=== PATIENT | female | born 1980 | race Caucasian/White ===

== ENCOUNTER 2022-10-23 06:07 | Day surgery (SDC) | payer SELFPAY ==
[2022-10-19 12:39] VITALS: BMI 25.3
[2022-10-23] MEDS ORDERED: DEXAMETHASONE SOD PHOSPHATE 4 MG/1 ML VIAL ONE (07:12)
[2022-10-23] MEDS ORDERED: KETOROLAC TROMETHAMINE 30 MG/1 ML VIAL ONE (07:12)
[2022-10-23] MEDS ORDERED: SEVOFLURANE 250 ML BTL ONE (07:12)
[2022-10-23] MEDS ORDERED: ONDANSETRON 4 MG/2 ML VIAL ONE ×2 (07:12→11:49)
[2022-10-23] MEDS ORDERED: MIDAZOLAM HCL 2 MG/2 ML SINGLE DOSE VIAL ONE ×2 (07:13→08:07)
[2022-10-23] MEDS ORDERED: SUCCINYLCHOLINE CHLORIDE 200 MG/10 ML SYRINGE ONE (07:13)
[2022-10-23] MEDS ORDERED: ROCURONIUM BROMIDE 50 MG/5 ML SYRINGE ONE ×2 (07:13→08:55)
[2022-10-23] MEDS ORDERED: PROPOFOL 20 ML ONE ×4 (07:13→11:39)
[2022-10-23] MEDS ORDERED: EPINEPHrine/PF 1 MG/1 ML (1:1,000) AMPULE ONE ×3 (07:24→10:30)
[2022-10-23] MEDS ORDERED: BUPIVACAINE HCL/PF 2.5 MG/ML - 30 ML VIAL IJ ONE (07:24)
[2022-10-23] MEDS ORDERED: LIDOCAINE HCL 1%, 10 MG/ML (20ML VIAL) ONE (07:24)
[2022-10-23] MEDS ORDERED: ACETAMINOPHEN INJECTION 100 ML IVPB ONE (07:39)
[2022-10-23] MEDS ORDERED: SCOPOLAMINE HYDROBROMIDE 1 PATCH PATCH.TD72 ONE (07:39)
[2022-10-23] MEDS ORDERED: ePHEDrine SULFATE 50 MG/1 ML AMPULE ONE (07:50)
[2022-10-23] MEDS ORDERED: BUPIVACAINE LIPOSOME/PF (EXPAREL) 266 MG/20 ML VIAL ONE (08:02)
[2022-10-23] MEDS ORDERED: HEPARIN NA (PORCINE) 5,000 UNITS/ML 1ML VIAL ONE (08:10)
[2022-10-23] MEDS ORDERED: BUPIVACAINE HCL/PF 0.25% (2.5MG/ML) 10 ML VIAL ONE (08:12)
[2022-10-23] MEDS ORDERED: ceFAZolin SODIUM 1 GM VIAL ONE ×2 (08:32)
[2022-10-23] MEDS ORDERED: PHENYLEPHRINE HCL 10 MG/1 ML SINGLE DOSE VIAL ONE (08:34)
[2022-10-23] MEDS ORDERED: HYDROmorphone HCL/PF 1 MG/ML VIAL ONE (08:45)
[2022-10-23] MEDS ORDERED: GLYCOPYRROLATE 0.2 MG/1 ML VIAL ONE ×2 (10:38)
[2022-10-23] MEDS ORDERED: NEOSTIGMINE METHYLSULFATE 0.5 MG/1 ML - 10 ML MDV ONE (10:38)
[2022-10-23] MEDS ORDERED: NITROGLYCERIN 2% OINTMENT - 1GM PACKET TD ONE (11:11)
[2022-10-23] MEDS ORDERED: BACITRACIN 15 GM TUBE TOPICAL OINTMENT ONE (11:42)
[2022-10-23] MEDS ORDERED: PROMETHAZINE HCL 25 MG/1 ML VIAL IVPUSH PRN (12:12)
[2022-10-23] MEDS ORDERED: oxyCODONE HCL 5 MG TABLET PO PRN ×2 (12:12)
[2022-10-23] MEDS ORDERED: LACTATED RINGERS SOLUTION 1,000 ML IV SCH (12:15)
[2022-10-23] MEDS ORDERED: ONDANSETRON 4 MG/2 ML VIAL IVPB PRN (12:24)
[2022-10-23] MEDS ORDERED: FENTANYL CITRATE/PF 50 MCG/ML VIAL ONE ×2 (12:42→13:22)
[2022-10-23] MEDS ORDERED: ACETAMINOPHEN 325 MG TABLET (FP) PO PRN (15:00)
[2022-10-23] MEDS: LACTATED RINGERS SOLUTION 1,000 ML IV SCH (16:18)
[2022-10-23] MEDS: INSULIN SLIDING SCALE (NOVOLOG) 1 VIAL SQ SCH (16:58)
[2022-10-23] MEDS: CEFAZOLIN 1 GM in DEXTROSE 5%-WATER - 50 ML IVPB SCH (17:09)
[2022-10-23 20:36] VITALS: RESP 18
[2022-10-23] MEDS: oxyCODONE HCL 5 MG TABLET PO PRN (22:25)
[2022-10-23] MEDS: busPIRone HCL 5 MG TABLET PO SCH (22:28)
[2022-10-24] MEDS: CEFAZOLIN 1 GM in DEXTROSE 5%-WATER - 50 ML IVPB SCH ×2 (03:15→09:19)
[2022-10-24 04:36] VITALS: BP 101/54; PULSE 83; TEMP 98.5
[2022-10-24] MEDS: oxyCODONE HCL 5 MG TABLET PO PRN ×3 (04:37→13:00)
[2022-10-24] MEDS: INSULIN SLIDING SCALE (NOVOLOG) 1 VIAL SQ SCH ×2 (06:29→12:50)
[2022-10-24] MEDS ORDERED: HEPARIN NA (PORCINE) 5,000 UNITS/ML 1ML VIAL SQ SCH (08:00)
[2022-10-24] MEDS: busPIRone HCL 5 MG TABLET PO SCH (09:19)
[2022-10-24] MEDS: LACTATED RINGERS SOLUTION 1,000 ML IV SCH (13:07)
== END 2022-10-24 14:30 | disposition home or self-care (01) ==
LOC: FASU 06:07 → FASUSAT 06:07 → FM/S 14:43 → FASUSAT 10-24 14:30
PROVIDERS: ATTEND Plastic Surgery
PROC: 0J063ZZ Alteration of Chest Subcutaneous Tissue and Fascia, Percutaneous Approach (ICD-10-PCS; 2022-10-23)
PROC: 0J080ZZ Alteration of Abdomen Subcutaneous Tissue and Fascia, Open Approach (ICD-10-PCS; principal; 2022-10-23 08:43)
PROC: 0J083ZZ Alteration of Abdomen Subcutaneous Tissue and Fascia, Percutaneous Approach (ICD-10-PCS; 2022-10-23 08:43)
DX: M95.8 Other specified acquired deformities of musculoskeletal system (principal); E88.1 Lipodystrophy, not elsewhere classified
CPT/HCPCS: 81025; 82962; 94760; J1644